=== PATIENT | male | born 1950 | race Caucasian/White ===

== ENCOUNTER 2020-10-15 14:08 | Inpatient (IN) | payer OTHER, SELFPAY ==
[~2020-10-15] VITALS: Ht 185.4 cm; Wt 77.1 kg
--- NOTE | 2020-10-15 14:11 | NUR ---
Patient to ER bed 03 to gown for evaluation. Side rails up.
[2020-10-15 14:19] VITALS: BP_SYST 144
--- NOTE | 2020-10-15 14:20 | NUR ---
Pt came to ER for urinary retention. Pt states he has not been able to urinate for the last few days. Pt states when he tries to go to the restroom only drops come out. Pt resting in [facility] at this time, VSS, no distress noted.
--- NOTE | 2020-10-15 14:35 | NUR ---
QUANG Maloney at bedside examining patient.
--- NOTE | 2020-10-15 15:44 | NUR ---
Pt tolerated hunt catheter
[2020-10-15 15:58] LABS: BILIRUBIN,URINE NEGATIVE (NEGATIVE); CLARITY/URINE CLEAR (CLEAR); COLOR,URINE YELLOW (YELLOW); GLUCOSE,URINE NEGATIVE (NEGATIVE); KETONES,URINE NEGATIVE (NEGATIVE); LEUKOCYTE ESTERASE ,URINE NEGATIVE (NEGATIVE); NITRITE, URINE NEGATIVE (NEGATIVE); PH,URINE 5.5 (5.0-8.0); PROTEIN URINE TRACE (NEGATIVE); UROBILINOGEN,URINE 0.2 (0.2-1.0)
[2020-10-15 16:10] LABS: BASOPHILS % (AUTO) 0.3 % (0.0-2.0); CALCIUM 9.5 mg/dL (8.4-11.0); CREATININE 3.33 mg/dL (0.55-1.30); EOSINOPHILS # (AUTO) 0.1 K/uL (0.0-0.4); EOSINOPHILS % (AUTO) 0.7 % (0.0-4.0); HEMATOCRIT 34.4 % (36-54); HEMOGLOBIN 11.8 g/dL (14.0-18.0); LYMPHOCYTES # (AUTO) 1.3 K/uL (1.0-5.5); LYMPHOCYTES % (AUTO) 16.7 % (20.5-51.5); MEAN CORPUSCULAR HEMOGLOBIN 34 pg (27-31); MEAN CORPUSCULAR HGB CONC 34 % (32-36); MEAN CORPUSCULAR VOLUME 98 fL (79.0-98.0); MONOCYTES # (AUTO) 0.4 K/uL (0.0-1.0); MONOCYTES % (AUTO) 4.8 % (1.7-9.3); NEUTROPHILS % (AUTO) 77.5 % (40.0-70.0); PLATELET COUNT (AUTO) 224 K/uL (130-430); POTASSIUM 4.7 mmol/L (3.5-5.1); RED BLOOD CELL COUNT(AUTO) 3.51 MIL/uL (4.2-6.2); RED CELL DISTRIBUTION WIDTH 16.9 % (9.0-15.0); WHITE BLOOD COUNT (AUTO) 7.8 K/uL (4.8-10.8)
[2020-10-15 16:12] LABS: BLOOD, URINE TRACE (NEGATIVE)
[2020-10-15 16:16] LABS: ALBUMIN 3.4 g/dL (3.4-4.8); TOTAL BILIRUBIN 0.4 mg/dL (0.0-1.0)
--- NOTE | 2020-10-15 17:00 | NUR ---
Pt resting in [facility] at bedside
[2020-10-15 17:01] LABS: BACTERIA,URINE FEW /HPF (None Seen); RBC,URINE 0-3 /HPF (0-3)
[2020-10-15 17:02] LABS: MUCUS,URINE None Seen /LPF (None Seen); URINE AMORPHOUS URATE 1+ /HPF (None Seen)
[2020-10-15 17:08] LABS: PROTHROMBIN TIME 10.7 SECS (9.5-12.5)
[2020-10-15] MEDS ORDERED: cefTRIAXone 1 GM in D5W 50 ML IV ONE (17:15)
[2020-10-15] MEDS ORDERED: MAGNESIUM CITRATE 300 ML ORAL SOLUTION PO ONE (17:15)
[2020-10-15] MEDS ORDERED: cefTRIAXone 1 GM VIAL ONE (17:51)
[2020-10-15] MEDS ORDERED: NACL 0.9% 1,000 ML IV SCH (18:30)
--- NOTE | 2020-10-15 18:30 | NUR ---
Pt comfortable, VSS
[2020-10-15] MEDS ORDERED: LORA-258 PO (18:38)
[2020-10-15] MEDS ORDERED: ONDA4TAB5 PO (18:38)
[2020-10-15] MEDS ORDERED: CAS50 PO (18:38)
[2020-10-15] MEDS ORDERED: LISI1TAB32 PO (18:38)
--- NOTE | 2020-10-15 18:39 | NUR ---
Med rec complete.
--- NOTE | 2020-10-15 19:11 | NUR ---
Received report from JENNIFER Martin and continue care of patient.
--- NOTE | 2020-10-15 19:22 | NUR ---
COVID-19 swabs collected and sent to lab.
--- NOTE | 2020-10-15 19:26 | NUR ---
Empty urine bag- urine output 750 ML, Yellow, clear.
--- NOTE | 2020-10-15 19:35 | NUR ---
Provide Sanwiches, Jello and Juice per patient request.
[2020-10-15] MEDS ORDERED: ONDANSETRON HCL 4 MG/2 ML VIAL IVP PRN (20:00)
[2020-10-15] MEDS ORDERED: ONDANSETRON 4 MG ODT TAB PO PRN (20:00)
[2020-10-15] MEDS ORDERED: LORazepam 2 MG/ML VIAL IVP PRN (20:00)
[2020-10-15] MEDS ORDERED: LORazepam 1 MG TABLET PO PRN (20:00)
--- NOTE | 2020-10-15 20:41 | NUR ---
US at bedside.
--- NOTE | 2020-10-15 21:22 | NUR ---
Patient went to restroom.
--- NOTE | 2020-10-15 21:51 | NUR ---
Given to Pillows and Centuria as request.
--- NOTE | 2020-10-15 22:16 | NUR ---
Patient is sleeping, vss.
--- NOTE | 2020-10-16 00:53 | NUR ---
Patient resting quietly. No acute distress noted. Vital signs within normal range.
--- NOTE | 2020-10-16 02:04 | NUR ---
Patient resting quietly. No acute distress noted. Vital signs within normal range.
--- NOTE | 2020-10-16 02:16 | NUR ---
Moved patient to hospital bed.
--- NOTE | 2020-10-16 03:53 | NUR ---
Patient is sleeping, no acute distress this time.
[2020-10-16] MEDS: D5/0.45 NS 1,000 ML IV SCH ×4 (04:18→18:41)
--- NOTE | 2020-10-16 04:25 | NUR ---
Blood for labwork drawn from finish remover. Patient tolerated well.
--- NOTE | 2020-10-16 05:18 | NUR ---
Patient resting quietly. No acute distress noted. Vital signs within normal range.
[2020-10-16 05:19] LABS: CREATININE 1.79 mg/dL (0.55-1.30); PHOSPHORUS 3.5 mg/dL (2.7-4.5)
--- NOTE | 2020-10-16 05:26 | NUR ---
Spoke with Dr. Bolaños.
--- NOTE | 2020-10-16 06:18 | NUR ---
Spoke with Dr. Emery.
--- NOTE | 2020-10-16 06:24 | NUR ---
Patient resting quietly. No acute distress noted. Vital signs within normal range.
[2020-10-16 06:50] LABS: BASOPHILS % (AUTO) 0.4 % (0.0-2.0); EOSINOPHILS # (AUTO) 0.1 K/uL (0.0-0.4); EOSINOPHILS % (AUTO) 1.4 % (0.0-4.0); HEMATOCRIT 33.2 % (36-54); HEMOGLOBIN 11.3 g/dL (14.0-18.0); LYMPHOCYTES # (AUTO) 1.7 K/uL (1.0-5.5); LYMPHOCYTES % (AUTO) 26.7 % (20.5-51.5); MEAN CORPUSCULAR HEMOGLOBIN 34 pg (27-31); MEAN CORPUSCULAR HGB CONC 34 % (32-36); MEAN CORPUSCULAR VOLUME 99 fL (79.0-98.0); MONOCYTES # (AUTO) 0.4 K/uL (0.0-1.0); MONOCYTES % (AUTO) 5.5 % (1.7-9.3); NEUTROPHILS # (AUTO) 4.2 K/uL (1.8-7.7); PLATELET COUNT (AUTO) 221 K/uL (130-430); RED BLOOD CELL COUNT(AUTO) 3.36 MIL/uL (4.2-6.2); RED CELL DISTRIBUTION WIDTH 16.6 % (9.0-15.0); WHITE BLOOD COUNT (AUTO) 6.3 K/uL (4.8-10.8)
--- NOTE | 2020-10-16 06:55 | NUR ---
Empty urine bag-urine output -850 ML, yellow, clear
--- NOTE | 2020-10-16 07:19 | NUR ---
report received from July JENNIFER
--- NOTE | 2020-10-16 07:20 | NUR ---
Evelia morris in [facility] - 10/16/20 at 0747 by JITENDRA report received from Ludmila RODRIGUEZ
--- NOTE | 2020-10-16 07:30 | NUR ---
PT IS SLEEPING IN BED.
[2020-10-16] MEDS ORDERED: MORPHINE 4 MG INJ. 4 MG/ML VIAL IVP ONE (08:15)
[2020-10-16 08:48] LABS: C-REACTIVE PROTEIN QUANT 11.6 mg/dL (0-0.5)
--- NOTE | 2020-10-16 08:58 | NUR ---
Patient will be admitted to care of DR. MALLOY. Admitted to MED SURG unit. Will go to room 100-A. Belongings list completed. Complete and up to date summary report printed. SBAR report to be given at bedside with opportunity for questions.
[2020-10-16] MEDS: LISINOPRIL 10 MG TABLET (PRINIVIL) PO SCH (09:00)
[2020-10-16] MEDS: HYDROCHLOROTHIAZIDE 12.5 MG CAPSULE (HCTZ) PO SCH (09:00)
[2020-10-16] MEDS ORDERED: POLYETHYLENE GLYCOL 3350, 17 GM/ POWD.PACK PO ONE (09:00)
[2020-10-16] MEDS: BICALUTAMIDE 50 MG TABLET PO SCH (09:00)
[2020-10-16 09:30] VITALS: BP_SYST 124
--- NOTE | 2020-10-16 09:30 | NUR ---
ADMIT ADMITTED WITH DIAGNOSIS OF PYELONEPHRITIS. IV ACCESS INTACT. CALLES CATHETER IN PLACE. HEIMLICH VALVE ON LEFT CHEST. PORT-A-CATH ON LEFT CHEST. ADMISSION PROCESS INITIATED. PATIENT DEMONSTRATED PROPER USE OF BERNIE LIGHT. WILL MONITOR.
[2020-10-16 09:47] LABS: ERYTHROCYTE SEDIMENTATION RATE 74 MM/HR (0-15)
--- NOTE | 2020-10-16 11:12 | NUR ---
CONSULT NEPHROLOGY MARIA TERESA DR RODRIGUES,ABID [phone] S/W [facility] OFFICE
--- NOTE | 2020-10-16 11:14 | NUR ---
CONSULT GI CONSTIPATION DR BILL [phone] DR CLINE BRAKE RELINER S/W [facility]
[2020-10-16 11:22] VITALS: BP_SYST 137
--- NOTE | 2020-10-16 12:00 | NUR ---
NPO RESTING. PATIENT VERBALIZED UNDERSTANDING ON NPO ORDER. NO OTHER COMPLAINS AT THIS TIME.
[2020-10-16 15:34] VITALS: BP_SYST 136
--- NOTE | 2020-10-16 15:54 | NUR ---
Consult Pulmo Consulting Doctor: Dr. Elizabeth [phone] Reason: Pneumothorax Requesting Doctor: Dr. Monsalve, A Spoke with Lindsay at exchange
--- NOTE | 2020-10-16 16:39 | NUR ---
TRANSFER OF CARE NEEDS MET. TRANSFERRED TO THE CARE OF MS. KELLIE RN.
[2020-10-16] MEDS: cefTRIAXone 1 GM IVPB PREMIX 50 ML IV SCH (18:40)
--- NOTE | 2020-10-16 19:00 | NUR ---
khushboo notes at bedside and pt eating dinner. no osb noted. bed to the lowest position and side rails up and locked. call light withn reached.
--- NOTE | 2020-10-16 19:40 | NUR ---
OPENING NOTE RECEIVED REPORT FROM DAY RN. PATIENT AAOX4. RESPIRATION EVEN AND UNLABORED ON RA. NO SIGNS OF DISTRESS NOTED. AT BEDSIDE. CALLES CATHETER INTACT AND DRAINING YELLOW FLUID. LAC 22G PATEN AND INTACT RUNNING IVF. NO SIGNS OF INFILTRATION NOTED. HEIMLICH VALVE ON LEFT LUNG CLEAN, DRY AND INTACT. YELLOW FLUID DRAINING. LEFT PORT A CATH DRESSING CLEAN, DRY, AND INTACT. NO SIGNS OF INFECTION NOTED. BED IN LOW AND LOCKED POSITION. CALL LIGHT WITHIN REACH. SAFETY PRECAUTIONS IN PLACE. EDUCATED PT ON PLAN OF CARE. WILL CONTINUE TO MONITOR.
[2020-10-16 20:00] VITALS: BP_SYST 125
[2020-10-16] MEDS: POLYETHYLENE GLYCOL 3350, 17 GM/ POWD.PACK PO SCH (20:29)
--- NOTE | 2020-10-16 21:28 | NUR ---
DR. EARLY CALLED EXPLAINED TO MD THAT CONSULT WAS FOR PT PNEUMOTHORAX. CXR ORDERED FOR THURSDAY MORNING, 10/17/[address] EARLY. TO/RB FOR VERIFICATION. PATIENT NOTIFIED OF MORNING PROCEDURE
--- NOTE | 2020-10-16 23:11 | NUR ---
LAC 22G IV DISLODGED TWO ATTEMPTS TO ACCESS NEW IV. PT REFUSED ANOTHER ATTEMPT. CHARGE NURSE NOTIFIED. WILL ENDORSE TO DAY RN.
[2020-10-17 00:19] VITALS: BP_SYST 123
--- NOTE | 2020-10-17 06:40 | NUR ---
Nutrition Update Yoan Scale 17 noted. Pt admitted for Pyelonephritis Diet: 2gm Na BMI: 22.4 kg/m2 RD to follow per nutrition care standards.
--- NOTE | 2020-10-17 06:53 | NUR ---
CLOSING NOTE PATIENT SLEEPING IN BED WITH RESPIRATIONS EVEN AND UNLABORED ON RA. NO SIGNS OF DISTRESS NOTED. CALLES CATHETER INTACT AND DRAINING YELLOW FLUID. HEIMLICH VALVE ON LEFT LUNG CLEAN, DRY AND INTACT. YELLOW FLUID DRAINING. LEFT PORT A CATH DRESSING CLEAN, DRY, AND INTACT. NO SIGNS OF INFECTION NOTED. BED IN LOW AND LOCKED POSITION. CALL LIGHT WITHIN REACH. SAFETY PRECAUTIONS IN PLACE. ALL NEEDS MET THROUGHOUT THE NIGHT. WILL ENDORSE TO DAY RN.
[2020-10-17 06:57] LABS: BASOPHILS % (AUTO) 0.4 % (0.0-2.0); EOSINOPHILS % (AUTO) 0.7 % (0.0-4.0); HEMATOCRIT 34.5 % (36-54); HEMOGLOBIN 11.9 g/dL (14.0-18.0); LYMPHOCYTES # (AUTO) 1.7 K/uL (1.0-5.5); LYMPHOCYTES % (AUTO) 28.8 % (20.5-51.5); MEAN CORPUSCULAR HEMOGLOBIN 34 pg (27-31); MEAN CORPUSCULAR HGB CONC 34 % (32-36); MEAN CORPUSCULAR VOLUME 99 fL (79.0-98.0); MONOCYTES # (AUTO) 0.5 K/uL (0.0-1.0); MONOCYTES % (AUTO) 8.4 % (1.7-9.3); NEUTROPHILS # (AUTO) 3.5 K/uL (1.8-7.7); NEUTROPHILS % (AUTO) 61.7 % (40.0-70.0); PLATELET COUNT (AUTO) 216 K/uL (130-430); RED BLOOD CELL COUNT(AUTO) 3.49 MIL/uL (4.2-6.2); RED CELL DISTRIBUTION WIDTH 16.7 % (9.0-15.0); WHITE BLOOD COUNT (AUTO) 5.8 K/uL (4.8-10.8)
--- NOTE | 2020-10-17 07:25 | NUR ---
OPENING NOTES: RECEIVED REPORT FROM DEPARTMENT STORE DOOR GREETER NURSE. PATIENT IS AWAKE LAYING DOWN IN BED. TOLERATED OXYGEN ON ROOM AIR WITH NO DISTRESS NOTED. NO IV LINE NOTED. DENIES ANY PAIN AT THE MOMENT. PATIENT STABLE AT THIS TIME. SAFETY, FALL, AND ASPIRATION PRECAUTIONS ARE IN PLACE. BED LOCKED IN LOWEST POSITION AND CALL LIGHT IN REACH. WILL CONTINUE TO MONITOR PATIENT FOR ANY CHANGES. Addendum: 10/17/20 at 0754 by Adal Cutler RN CALLES CATHETER IN PLACE AND DRAINING BY GRAVITY WITH YELLOW URINE.
[2020-10-17 07:32] LABS: CALCIUM 9.1 mg/dL (8.4-11.0); CREATININE 1.3 mg/dL (0.55-1.30); PHOSPHORUS 3.2 mg/dL (2.7-4.5); POTASSIUM 4.2 mmol/L (3.5-5.1); TOTAL BILIRUBIN 0.1 mg/dL (0.0-1.0)
[2020-10-17 08:00] VITALS: BP_SYST 128
[2020-10-17 08:28] LABS: ERYTHROCYTE SEDIMENTATION RATE 85 MM/HR (0-15)
[2020-10-17 09:27] LABS: C-REACTIVE PROTEIN QUANT 6.6 mg/dL (0-0.5)
[2020-10-17] MEDS: HYDROCHLOROTHIAZIDE 12.5 MG CAPSULE (HCTZ) PO SCH (09:47)
[2020-10-17] MEDS: TAMSULOSIN HCL 0.4 MG CAP PO SCH (09:48)
[2020-10-17] MEDS: LISINOPRIL 10 MG TABLET (PRINIVIL) PO SCH (09:48)
[2020-10-17] MEDS: POLYETHYLENE GLYCOL 3350, 17 GM/ POWD.PACK PO SCH ×2 (09:48→21:38)
[2020-10-17] MEDS: BICALUTAMIDE 50 MG TABLET PO SCH (09:49)
[2020-10-17] MEDS: D5/0.45 NS 1,000 ML IV SCH (12:00)
[2020-10-17 12:08] VITALS: BP_SYST 143
[2020-10-17 16:07] VITALS: BP_SYST 131
[2020-10-17] MEDS: cefTRIAXone 1 GM IVPB PREMIX 50 ML IV SCH (17:45)
--- NOTE | 2020-10-17 18:30 | NUR ---
CLOSING NOTES: PATIENT IS AWAKE LAYING DOWN IN BED. TOLERATED OXYGEN ON ROOM AIR WITH NO DISTRESS NOTED. IV LINE PATENT AND INTACT WITH NO INFILTRATION NOTED. CALLES CATHETER IN PLACE AND DRAINING BY GRAVITY WITH YELLOW URINE. DENIES ANY PAIN AT THE MOMENT. PATIENT STABLE AT THIS TIME. SAFETY, FALL, AND ASPIRATION PRECAUTIONS REMAINED IN PLACE. BED LOCKED IN LOWEST POSITION AND CALL LIGHT IN REACH. WILL ENDORSE PATIENT CARE TO ONCOMING WELL DRILLER NURSE.
[2020-10-17 20:00] VITALS: BP_SYST 127
--- NOTE | 2020-10-17 20:46 | NUR ---
OPENING NOTE PATIENT STANDING NEAR BED, STEADY. RESPIRATIONS EVEN AND UNLABORED ON RA. NO SIGNS OF DISTRESS NOTED. CALLES CATHETER INTACT DRAINING YELLOW FLUID. LEFT PORT A CATH INTACT. NO DRESSING NOTED. SUTURES INTACT. LACERATION CLEAN, DRY, WITH NO REDNESS OR DRAINAGE. HEIMLICH VALVE ON LEFT LUNG. CLEAN DRY AND INTACT. DRAINING YELLOW FLUID. NO SIGNS OF INFECTION NOTED. BED IN LOW AND LOCKED POSITION. CALL LIGHT WITHIN REACH. SAFETY PRECAUTIONS IN PLACE. PT IN GOOD SPIRITS. WILL CONTINUE TO MONITOR.
[2020-10-17] MEDS: NORMAL SALINE 5 ML DISP.SYRIN IVF SCH (21:38)
[2020-10-18 02:07] VITALS: BP_SYST 122
[2020-10-18] MEDS: NORMAL SALINE 5 ML DISP.SYRIN IVF SCH ×2 (06:05→13:22)
[2020-10-18 06:33] LABS: BASOPHILS % (AUTO) 0.2 % (0.0-2.0); EOSINOPHILS % (AUTO) 0.7 % (0.0-4.0); HEMATOCRIT 34.1 % (36-54); HEMOGLOBIN 11.8 g/dL (14.0-18.0); LYMPHOCYTES # (AUTO) 1.7 K/uL (1.0-5.5); LYMPHOCYTES % (AUTO) 23.3 % (20.5-51.5); MEAN CORPUSCULAR HEMOGLOBIN 34 pg (27-31); MEAN CORPUSCULAR HGB CONC 35 % (32-36); MEAN CORPUSCULAR VOLUME 98 fL (79.0-98.0); MONOCYTES # (AUTO) 0.6 K/uL (0.0-1.0); MONOCYTES % (AUTO) 8.2 % (1.7-9.3); NEUTROPHILS # (AUTO) 4.8 K/uL (1.8-7.7); NEUTROPHILS % (AUTO) 67.6 % (40.0-70.0); PLATELET COUNT (AUTO) 225 K/uL (130-430); RED BLOOD CELL COUNT(AUTO) 3.48 MIL/uL (4.2-6.2); RED CELL DISTRIBUTION WIDTH 16.5 % (9.0-15.0); WHITE BLOOD COUNT (AUTO) 7.1 K/uL (4.8-10.8)
[2020-10-18 06:39] LABS: CALCIUM 9.2 mg/dL (8.4-11.0); CREATININE 1.12 mg/dL (0.55-1.30); PHOSPHORUS 3.7 mg/dL (2.7-4.5); POTASSIUM 4.1 mmol/L (3.5-5.1)
--- NOTE | 2020-10-18 07:22 | NUR ---
CLOSING NOTE PT SLEEPING IN BED. RESPIRATIONS EVEN AND UNLABORED ON RA. NO SIGNS OF DISTRESS NOTED. SAFETY PRECAUTIONS IN PLACE. ALL NEEDS MET. WILL ENDORSE TO DAY RN.
--- NOTE | 2020-10-18 07:25 | NUR ---
OPENING NOTES: RECEIVED REPORT FROM POLICE CHIEF DEPUTY NURSE. PATIENT IS AWAKE LAYING DOWN IN BED. TOLERATED OXYGEN ON ROOM AIR WITH NO DISTRESS NOTED. IV LINE PATENT AND INTACT WITH NO INFILTRATION NOTED. CALLES CATHETER IN PLACE AND DRAINING BY GRAVITY. DENIES ANY PAIN AT THE MOMENT. PATIENT STABLE AT THIS TIME. SAFETY, FALL, AND ASPIRATION PRECAUTIONS ARE IN PLACE. BED LOCKED IN LOWEST POSITION AND CALL LIGHT IN REACH. WILL CONTINUE TO MONITOR PATIENT FOR ANY CHANGES.
[2020-10-18 07:31] LABS: C-REACTIVE PROTEIN QUANT 3.3 mg/dL (0-0.5)
[2020-10-18 08:00] VITALS: BP_SYST 120
[2020-10-18] MEDS: POLYETHYLENE GLYCOL 3350, 17 GM/ POWD.PACK PO SCH (09:23)
[2020-10-18] MEDS: TAMSULOSIN HCL 0.4 MG CAP PO SCH (09:23)
[2020-10-18] MEDS: HYDROCHLOROTHIAZIDE 12.5 MG CAPSULE (HCTZ) PO SCH (09:24)
[2020-10-18] MEDS: LISINOPRIL 10 MG TABLET (PRINIVIL) PO SCH (09:24)
[2020-10-18] MEDS: BICALUTAMIDE 50 MG TABLET PO SCH (09:25)
[2020-10-18 09:43] LABS: ERYTHROCYTE SEDIMENTATION RATE 68 MM/HR (0-15)
[2020-10-18 12:09] VITALS: BP_SYST 125
[2020-10-18] MEDS ORDERED: LEVO500T89 PO (13:18)
[2020-10-18] MEDS ORDERED: POLY17PO4 PO (13:18)
[2020-10-18] MEDS ORDERED: TAMS0.4C96 PO (13:18)
[2020-10-18 13:48] VITALS: BP_SYST 125
--- NOTE | 2020-10-18 14:35 | NUR ---
D/C Patient Patient given medication reconciliation form and D/C instructions. Exit Care provided. Patient verbalized understanding. MD discussed with patient the results and treatment provided. Ambulatory with steady gait for discharge to home. Patient in stable condition, ID band removed. IV catheter removed, intact and dressing applied, no active bleeding. Rx of tamsulosin, levaquin, and miralax given. Patient educated on pain management. All belongings sent with patient.
--- NOTE | 2020-10-19 08:24 | NUR ---
Disposition 01
== END 2020-10-18 14:35 | disposition home or self-care (01) | DRG 698 ==
LOC: SED 14:08 → SMU 18:24
PROVIDERS: ADMIT Preventive Medicine Preventive Medicine/Occupational Environmental Medicine; ATTEND Preventive Medicine Preventive Medicine/Occupational Environmental Medicine
DX: N13.9 Obstructive and reflux uropathy, unspecified (principal); N17.0 Acute kidney failure with tubular necrosis; N10 Acute pyelonephritis; C19 Malignant neoplasm of rectosigmoid junction; J95.811 Postprocedural pneumothorax; N39.0 Urinary tract infection, site not specified; C61 Malignant neoplasm of prostate; K59.00 Constipation, unspecified; D64.9 Anemia, unspecified; Z20.822 Contact with and (suspected) exposure to COVID-19; E88.09 Other disorders of plasma-protein metabolism, not elsewhere classified; F41.9 Anxiety disorder, unspecified; I25.10 Atherosclerotic heart disease of native coronary artery without angina pectoris; I12.9 Hypertensive chronic kidney disease with stage 1 through stage 4 chronic kidney disease, or unspecified chronic kidney disease; N18.9 Chronic kidney disease, unspecified; Z85.46 Personal history of malignant neoplasm of prostate; Z85.048 Personal history of other malignant neoplasm of rectum, rectosigmoid junction, and anus
CPT/HCPCS: 36415; 71045; 71250-TC; 76376; 76770; 80048; 80053; 81000; 83605; 83735; 84100; 85025; 85610-TC; 85651-TC; 85730-TC; 86140; 87040-TC; 87081; 87086; 96365; 96375; 99285; J0696; J2270

== ENCOUNTER 2020-10-25 05:02 | Emergency (ER) | payer OTHER, SELFPAY ==
[~2020-10-25] VITALS: Ht 185.4 cm; Wt 80.7 kg
[~2020-10-25 05:02] MED LIST: CAS50 PO; LEVO500T89 PO; LISI1TAB32 PO; LORA-258 PO; ONDA4TAB5 PO; POLY17PO4 PO; TAMS0.4C96 PO
[2020-10-25 05:10] VITALS: BP_SYST 113
--- NOTE | 2020-10-25 05:30 | NUR ---
Patient to ER bed 8 to gown for evaluation. Side rails up. Report given to Ludmila RODRIGUEZ.
--- NOTE | 2020-10-25 05:32 | NUR ---
Patient BIB by family from home. C/O Hunt catheter x today. Patient reported, hunt catheter came off itself ~ 2000 PM yesterday, Patient unable to urinate by himself since. A/O,X4, denies pain. Patient will have appointment with spine supervisor today.
--- NOTE | 2020-10-25 05:48 | NUR ---
# 16 FR Gradna catheter with use of sterile technique. Immediate return of 700 ML, yellow, clear urine noted. Bedside drainage bag placed below level of bladder. Urine sample collected and sent to lab. Pt tolerated procedure well.
--- NOTE | 2020-10-25 06:03 | NUR ---
ER at bedside examining patient.
[2020-10-25 06:15] VITALS: BP_SYST 113
--- NOTE | 2020-10-25 06:15 | NUR ---
Patient given written and verbal discharge instructions and verbalizes understanding. ER MD discussed with patient the results and treatment provided. Patient in stable condition. ID arm band removed. No Rx given. Patient educated on pain management and to follow up with PMD. Pain Scale 0/10.Patient went home with Granda cath. Opportunity for questions provided and answered. Medication side effect fact sheet provided.
== END 2020-10-25 06:15 | disposition home or self-care (01) ==
LOC: SED 05:02
DX: T83.021A Displacement of indwelling urethral catheter, initial encounter (principal); R33.9 Retention of urine, unspecified; I10 Essential (primary) hypertension; Z79.899 Other long term (current) drug therapy
CPT/HCPCS: 99284

== ENCOUNTER 2020-11-25 19:23 | Inpatient (IN) | payer OTHER, SELFPAY ==
[~2020-11-25] VITALS: Ht 185.4 cm; Wt 83.9 kg
[2020-11-25 19:45] VITALS: BP_SYST 127
[2020-11-25] MEDS ORDERED: ACETAMINOPHEN 325 MG TABLET PO ONE (20:15)
[2020-11-25] MEDS ORDERED: LR 2,000 ML IV ONE (20:15)
[2020-11-25 20:37] LABS: BASOPHILS % (AUTO) 0.2 % (0.0-2.0); EOSINOPHILS % (AUTO) 0.1 % (0.0-4.0); HEMATOCRIT 30.4 % (36-54); HEMOGLOBIN 10.3 g/dL (14.0-18.0); LYMPHOCYTES # (AUTO) 1.1 K/uL (1.0-5.5); LYMPHOCYTES % (AUTO) 15.7 % (20.5-51.5); MEAN CORPUSCULAR HEMOGLOBIN 33 pg (27-31); MEAN CORPUSCULAR HGB CONC 34 % (32-36); MEAN CORPUSCULAR VOLUME 97 fL (79.0-98.0); MONOCYTES # (AUTO) 1.1 K/uL (0.0-1.0); MONOCYTES % (AUTO) 15.5 % (1.7-9.3); NEUTROPHILS # (AUTO) 4.7 K/uL (1.8-7.7); NEUTROPHILS % (AUTO) 68.5 % (40.0-70.0); PLATELET COUNT (AUTO) 311 K/uL (130-430); RED BLOOD CELL COUNT(AUTO) 3.13 MIL/uL (4.2-6.2); RED CELL DISTRIBUTION WIDTH 16.2 % (9.0-15.0); WHITE BLOOD COUNT (AUTO) 6.8 K/uL (4.8-10.8)
[2020-11-25 20:47] LABS: PROTHROMBIN TIME 10.7 SECS (9.5-12.5)
[2020-11-25 21:00] LABS: C-REACTIVE PROTEIN QUANT 3.8 mg/dL (0-0.5)
[2020-11-25 21:04] LABS: BILIRUBIN,URINE NEGATIVE (NEGATIVE); BLOOD, URINE 2+ (NEGATIVE); COLOR,URINE YELLOW (YELLOW); GLUCOSE,URINE NEGATIVE (NEGATIVE); KETONES,URINE NEGATIVE (NEGATIVE); LEUKOCYTE ESTERASE ,URINE 2+ (NEGATIVE); NITRITE, URINE POSITIVE (NEGATIVE); PH,URINE 5.5 (5.0-8.0); PROTEIN URINE 2+ (NEGATIVE); UROBILINOGEN,URINE 0.2 (0.2-1.0)
[2020-11-25 21:08] LABS: BILIRUBIN,DIRECT 0.1 mg/dL (0.0-0.3); CALCIUM 9.4 mg/dL (8.4-11.0); CREATININE 1.4 mg/dL (0.55-1.30); POTASSIUM 4.1 mmol/L (3.5-5.1); TOTAL BILIRUBIN 0.2 mg/dL (0.0-1.0)
[2020-11-25 21:09] LABS: ALBUMIN 3.4 g/dL (3.4-4.8)
[2020-11-25 21:19] LABS: CLARITY/URINE HAZY (CLEAR)
[2020-11-25 21:20] LABS: WBC,URINE 50-80 /HPF (0-3)
[2020-11-25 21:21] LABS: BACTERIA,URINE MODERATE /HPF (None Seen); MUCUS,URINE None Seen /LPF (None Seen)
[2020-11-25 21:36] LABS: FREE T4 (FREE THYROXINE) 1.2 ng/dl (0.8-1.5); THYROID STIMULATING HORMONE 0.62 uIu/mL (0.36-3.74)
[2020-11-25] MEDS ORDERED: cefTRIAXone 2 GM VIAL ONE (21:58)
[2020-11-25] MEDS: D5/0.45 NS 1,000 ML IV SCH (22:00)
[2020-11-25] MEDS ORDERED: NALOXONE HCL 0.4 MG/ML AMP (NARCAN) IVP PRN ×2 (23:15)
[2020-11-25] MEDS ORDERED: LORazepam 2 MG/ML VIAL IVP PRN (23:15)
[2020-11-25] MEDS ORDERED: HYDROcodone/ACETAMIN 10-325 MG TAB PO PRN (23:15)
[2020-11-25] MEDS ORDERED: ACETAMINOPHEN 325 MG TABLET PO PRN (23:15)
[2020-11-25] MEDS ORDERED: ONDANSETRON 4 MG ODT TAB PO PRN (23:15)
[2020-11-25] MEDS ORDERED: LORazepam 1 MG TABLET PO PRN (23:15)
[2020-11-25] MEDS ORDERED: HYDROcodone/ACETAMIN 5-325 MG TAB (NORCO/ VICODIN) PO PRN (23:15)
[2020-11-26 02:22] VITALS: BP_SYST 114
[2020-11-26 06:51] LABS: BASOPHILS % (AUTO) 0.3 % (0.0-2.0); EOSINOPHILS % (AUTO) 0.4 % (0.0-4.0); HEMATOCRIT 27.6 % (36-54); HEMOGLOBIN 9.7 g/dL (14.0-18.0); LYMPHOCYTES # (AUTO) 1.4 K/uL (1.0-5.5); LYMPHOCYTES % (AUTO) 18.4 % (20.5-51.5); MEAN CORPUSCULAR HEMOGLOBIN 34 pg (27-31); MEAN CORPUSCULAR HGB CONC 35 % (32-36); MEAN CORPUSCULAR VOLUME 97 fL (79.0-98.0); MONOCYTES # (AUTO) 1.3 K/uL (0.0-1.0); NEUTROPHILS # (AUTO) 4.8 K/uL (1.8-7.7); NEUTROPHILS % (AUTO) 63.9 % (40.0-70.0); PLATELET COUNT (AUTO) 293 K/uL (130-430); RED BLOOD CELL COUNT(AUTO) 2.85 MIL/uL (4.2-6.2); RED CELL DISTRIBUTION WIDTH 15.8 % (9.0-15.0); WHITE BLOOD COUNT (AUTO) 7.6 K/uL (4.8-10.8)
[2020-11-26 08:00] VITALS: BP_SYST 116
[2020-11-26] MEDS: D5/0.45 NS 1,000 ML IV SCH ×2 (08:00→14:21)
[2020-11-26] MEDS: HYDROCHLOROTHIAZIDE 12.5 MG CAPSULE (HCTZ) PO SCH (08:38)
[2020-11-26] MEDS: levoFLOXacin 500 MG TABLET PO SCH (08:38)
[2020-11-26] MEDS: LISINOPRIL 10 MG TABLET (PRINIVIL) PO SCH (08:39)
[2020-11-26] MEDS: BICALUTAMIDE 50 MG TABLET PO SCH (08:39)
[2020-11-26 10:03] LABS: ERYTHROCYTE SEDIMENTATION RATE 97 MM/HR (0-15)
[2020-11-26 11:25] LABS: ALBUMIN 2.8 g/dL (3.4-4.8); C-REACTIVE PROTEIN QUANT 7.1 mg/dL (0-0.5); CREATININE 1.2 mg/dL (0.55-1.30); PHOSPHORUS 4.2 mg/dL (2.7-4.5); POTASSIUM 3.7 mmol/L (3.5-5.1); TOTAL BILIRUBIN 0.3 mg/dL (0.0-1.0)
[2020-11-26 12:00] VITALS: BP_SYST 116
[2020-11-26 16:00] VITALS: BP_SYST 118
[2020-11-26] MEDS ORDERED: MAGNESIUM SULFATE/D5W 100 ML IV ONE (17:15)
[2020-11-26 20:00] VITALS: BP_SYST 101
[2020-11-26] MEDS: cefTRIAXone 1 GM IVPB PREMIX 50 ML IV SCH (20:23)
[2020-11-27] VITALS: BP_SYST 112
[2020-11-27] MEDS: D5/0.45 NS 1,000 ML IV SCH (02:50)
[2020-11-27 07:30] LABS: C-REACTIVE PROTEIN QUANT 10.8 mg/dL (0-0.5); CREATININE 1.12 mg/dL (0.55-1.30); PHOSPHORUS 3.8 mg/dL (2.7-4.5)
[2020-11-27 07:45] LABS: BASOPHILS % (AUTO) 0.3 % (0.0-2.0); EOSINOPHILS # (AUTO) 0.1 K/uL (0.0-0.4); EOSINOPHILS % (AUTO) 0.9 % (0.0-4.0); HEMATOCRIT 31.6 % (36-54); HEMOGLOBIN 10.8 g/dL (14.0-18.0); LYMPHOCYTES # (AUTO) 1.9 K/uL (1.0-5.5); MEAN CORPUSCULAR HEMOGLOBIN 34 pg (27-31); MEAN CORPUSCULAR HGB CONC 34 % (32-36); MEAN CORPUSCULAR VOLUME 98 fL (79.0-98.0); MONOCYTES # (AUTO) 0.8 K/uL (0.0-1.0); MONOCYTES % (AUTO) 12.5 % (1.7-9.3); NEUTROPHILS # (AUTO) 3.9 K/uL (1.8-7.7); NEUTROPHILS % (AUTO) 58.3 % (40.0-70.0); PLATELET COUNT (AUTO) 320 K/uL (130-430); RED BLOOD CELL COUNT(AUTO) 3.22 MIL/uL (4.2-6.2); RED CELL DISTRIBUTION WIDTH 15.9 % (9.0-15.0); WHITE BLOOD COUNT (AUTO) 6.7 K/uL (4.8-10.8)
[2020-11-27 08:00] VITALS: BP_SYST 127
[2020-11-27 08:06] LABS: PTH, INTACT 33 pg/mL (15-65)
[2020-11-27] MEDS: LISINOPRIL 10 MG TABLET (PRINIVIL) PO SCH (08:50)
[2020-11-27] MEDS: levoFLOXacin 500 MG TABLET PO SCH (08:50)
[2020-11-27] MEDS: HYDROCHLOROTHIAZIDE 12.5 MG CAPSULE (HCTZ) PO SCH (08:50)
[2020-11-27] MEDS: BICALUTAMIDE 50 MG TABLET PO SCH (08:50)
[2020-11-27 10:49] LABS: ERYTHROCYTE SEDIMENTATION RATE 96 MM/HR (0-15)
[2020-11-27 11:46] VITALS: BP_SYST 126
[2020-11-27 15:32] VITALS: BP_SYST 132
[2020-11-27 20:49] VITALS: BP_SYST 134
[2020-11-28] VITALS: BP_SYST 145
[2020-11-28] MEDS: cefTRIAXone 1 GM IVPB PREMIX 50 ML IV SCH (00:44)
[2020-11-28 08:00] VITALS: BP_SYST 140
[2020-11-28] MEDS: HYDROCHLOROTHIAZIDE 12.5 MG CAPSULE (HCTZ) PO SCH (08:46)
[2020-11-28] MEDS: levoFLOXacin 500 MG TABLET PO SCH (08:47)
[2020-11-28] MEDS: BICALUTAMIDE 50 MG TABLET PO SCH (08:47)
[2020-11-28] MEDS: LISINOPRIL 10 MG TABLET (PRINIVIL) PO SCH (08:47)
[2020-11-28 12:44] VITALS: BP_SYST 133
[2020-11-28 15:22] VITALS: BP_SYST 135
[2020-11-29 11:06] LABS: VIT D,1, 25-DIHYDROXY 28.4 pg/mL (19.9-79.3)
[2020-12-04 19:06] LABS: PTH RELATED PEPTIDE <2.0 pmol/L (.)
== END 2020-11-28 18:10 | disposition left against medical advice (07) | DRG 871 ==
LOC: SED 19:23 → SMU 21:50
PROVIDERS: ADMIT Preventive Medicine Preventive Medicine/Occupational Environmental Medicine; ATTEND Preventive Medicine Preventive Medicine/Occupational Environmental Medicine
DX: A41.9 Sepsis, unspecified organism (principal); N17.0 Acute kidney failure with tubular necrosis; N39.0 Urinary tract infection, site not specified; C19 Malignant neoplasm of rectosigmoid junction; D64.9 Anemia, unspecified; N18.9 Chronic kidney disease, unspecified; R73.9 Hyperglycemia, unspecified; N13.9 Obstructive and reflux uropathy, unspecified; I12.9 Hypertensive chronic kidney disease with stage 1 through stage 4 chronic kidney disease, or unspecified chronic kidney disease; Z20.822 Contact with and (suspected) exposure to COVID-19; C61 Malignant neoplasm of prostate; Z53.29 Procedure and treatment not carried out because of patient's decision for other reasons; Z79.899 Other long term (current) drug therapy; Z92.21 Personal history of antineoplastic chemotherapy
CPT/HCPCS: 36415; 71045; 76770; 80048; 80053; 80076; 81000; 82306; 82330; 83519; 83605; 83690; 83735; 83880; 83970; 84100; 84439; 84443; 84484; 85025; 85610-TC; 85651-TC; 86140; 87040-TC; 87086; 96365; 99285; J0696

== ENCOUNTER 2021-03-02 13:54 | Inpatient (IN) | payer OTHER, SELFPAY ==
[~2021-03-02] VITALS: Ht 185.4 cm; Wt 83.5 kg
[~2021-03-02 13:54] MED LIST changes: -POLY17PO4 PO; -TAMS0.4C96 PO
[2021-03-02 14:00] VITALS: BP_SYST 137
--- NOTE | 2021-03-02 14:05 | NUR ---
Patient walking ambulatory from triage to bed 4. Awaiting MD evaluation.
--- NOTE | 2021-03-02 14:07 | NUR ---
First contact made with patient. Family at bedside. Patient reporting anuria since ; states he self-caths but removes the catheter every 3-4 weeks to see if he can urinate on his own. Patient further states he is receiving "radiation" for an "enlarged prostate". Family reports patient can urinate but in very minimal amounts and has hematuria. Patient has also not been drinking very many fluids per family. VSS. Will continue to monitor.
[2021-03-02 14:48] LABS: EOSINOPHILS # (AUTO) 0.2 K/uL (0.0-0.4); EOSINOPHILS % (AUTO) 2.5 % (0.0-4.0); HEMATOCRIT 33.9 % (36-54); HEMOGLOBIN 11.5 g/dL (14.0-18.0); LYMPHOCYTES # (AUTO) 0.2 K/uL (1.0-5.5); LYMPHOCYTES % (AUTO) 3.9 % (20.5-51.5); MEAN CORPUSCULAR HEMOGLOBIN 34 pg (27-31); MEAN CORPUSCULAR HGB CONC 34 % (32-36); MEAN CORPUSCULAR VOLUME 99 fL (79.0-98.0); MONOCYTES # (AUTO) 0.7 K/uL (0.0-1.0); MONOCYTES % (AUTO) 11.9 % (1.7-9.3); NEUTROPHILS # (AUTO) 5.1 K/uL (1.8-7.7); NEUTROPHILS % (AUTO) 81.7 % (40.0-70.0); PLATELET COUNT (AUTO) 267 K/uL (130-430); RED BLOOD CELL COUNT(AUTO) 3.42 MIL/uL (4.2-6.2); RED CELL DISTRIBUTION WIDTH 15.4 % (9.0-15.0); WHITE BLOOD COUNT (AUTO) 6.2 K/uL (4.8-10.8)
[2021-03-02 14:53] LABS: CALCIUM 10.2 mg/dL (8.4-11.0); CREATININE 1.2 mg/dL (0.55-1.30); POTASSIUM 3.8 mmol/L (3.5-5.1)
[2021-03-02 14:57] LABS: PROTHROMBIN TIME 10.5 SECS (9.5-12.5)
--- NOTE | 2021-03-02 14:58 | NUR ---
18# FR Coude /Granda catheter with use of sterile technique. Immediate return of 200 cc urine noted. Bedside drainage bag placed below level of bladder. Urine sample collected and sent to lab. Pt tolerated procedure . Patient unable to toilet self.
[2021-03-02 14:59] LABS: ALBUMIN 4.1 g/dL (3.4-4.8); TOTAL BILIRUBIN 0.3 mg/dL (0.0-1.0)
--- NOTE | 2021-03-02 15:15 | NUR ---
RN attempted to place SL per Dr Wright's order. RN also attempted to place 3-way catheter for CBI. Patient became argumentative about why certain treatments were needed; refused both. Addendum: 03/02/21 at 1536 by SDEDJT RN attempted to educate patient re why IV and CBI were ordered and indicated. Did not accept education. Understanding verbalized but patient still refused.
--- NOTE | 2021-03-02 16:33 | NUR ---
Dr Wright at bedside to re-evaluate patient
--- NOTE | 2021-03-02 17:07 | NUR ---
Patient transported to CT scan via [facility]
--- NOTE | 2021-03-02 17:16 | NUR ---
Patient returned from CT scan via [facility]
[2021-03-02 17:26] LABS: BILIRUBIN,URINE NEGATIVE (NEGATIVE); BLOOD, URINE 3+ (NEGATIVE); CLARITY/URINE HAZY (CLEAR); COLOR,URINE YELLOW (YELLOW); GLUCOSE,URINE NEGATIVE (NEGATIVE); KETONES,URINE NEGATIVE (NEGATIVE); LEUKOCYTE ESTERASE ,URINE NEGATIVE (NEGATIVE); NITRITE, URINE NEGATIVE (NEGATIVE); PROTEIN URINE 1+ (NEGATIVE); UROBILINOGEN,URINE 0.2 (0.2-1.0)
[2021-03-02 17:28] LABS: WBC,URINE 50-80 /HPF (0-3)
[2021-03-02 17:29] LABS: BACTERIA,URINE FEW /HPF (None Seen); YEAST,URINE None Seen /HPF (None Seen)
[2021-03-02 17:31] LABS: MUCUS,URINE 1+ /LPF (None Seen)
[2021-03-02] MEDS ORDERED: NACL 0.9% 1,000 ML IV ONE (17:45)
[2021-03-02] MEDS ORDERED: LEVOFLOXACIN IN DEXTROSE 5 % 100 ML IV ONE (17:45)
--- NOTE | 2021-03-02 18:09 | NUR ---
# 20 gauge angiocath placed to L AC. Use of asceptic technique. Opsite placed over site. Blood return noted. Blood for lab drawn from site. Flushed with 10 cc of normal saline. No evidence of infiltration noted. Patient tolerated well.
--- NOTE | 2021-03-02 18:20 | NUR ---
# 20 gauge angiocath placed to L AC; second IV. Use of asceptic technique. Opsite placed over site. Blood return noted. Blood for lab drawn from site. Flushed with 10 cc of normal saline. No evidence of infiltration noted. Patient tolerated well. First IV "came out" while patient was in restroom.
--- NOTE | 2021-03-02 18:35 | NUR ---
COVID swab collected at bedside and sent to lab
--- NOTE | 2021-03-02 18:36 | NUR ---
Medication reconciliation completed with information provided by PATIENT. Any prior medication reconciliation on file was reviewed and corrected.
--- NOTE | 2021-03-02 19:03 | NUR ---
Report given to Kristal RODRIGUEZ to assume care of patient
--- NOTE | 2021-03-02 19:05 | NUR ---
RECEIVED REPORT FROM RACHELLE RODRIGUEZ
[2021-03-02] MEDS ORDERED: ACETAMINOPHEN 325 MG TABLET PO PRN (19:30)
[2021-03-02] MEDS ORDERED: MORPHINE 2 MG/ML INJ. SYRINGE IVP PRN (19:30)
--- NOTE | 2021-03-02 19:37 | NUR ---
PT RESTING IN HIS BED WAS ON MONITOR. REQUESTED TO USE THE BATHROOM, PT HAS BEEN HAVING DIARRHEA. STEADY GAIT NOTED WHEN WALKING. TAMIA
--- NOTE | 2021-03-02 19:51 | NUR ---
PT BACK TO ROOM. PROVIDED WITH BOXED LUNCH, PT SAYS HE HASN'T EATEN ALL DAY
--- NOTE | 2021-03-02 20:46 | NUR ---
PT TOLERATED BOXED LUNCH. PROVIDED PILLOW AND EXTRA BLANKET FOR COMFORT
--- NOTE | 2021-03-02 21:06 | NUR ---
NO NS WITH 20MEQ OF K IV FLUIDS IN ER. OREDER IS FLOOR ORDER. WILL WAIT TO SEE IF PT IS MOVING TO FLOOR SOON
--- NOTE | 2021-03-02 21:30 | NUR ---
PT CONTINUES TO HAVE DIARRHEA AND MAKES MULTIPLY TRIPS TO RESTROOM. HAS SOME ABD CRAMPING FROM THAT AND POSSIBLE BLADDER DISCOMFORT FOR INDWELLING CATH. WILL MEDICATE ORDERED
--- NOTE | 2021-03-02 21:45 | NUR ---
SPOKE TO HOUSE SUP ASKING FOR IV FLUID ORDER OF NS 1L WITH 20MEQ K+, PY WAITING TO BE ADMIITED TO MED/SURG. STILL NO BED AVAILABLILTY. HE WAS ADVISED K+ LEVEL IS 3.8, SAID TO WAIT FOR FLOOR TO START THAT ORDER
[2021-03-02] MEDS ORDERED: KCL 20 mEq in NS 1000 mL 1,000 ML IV ONE (22:08)
[2021-03-02] MEDS ORDERED: PIPERACILLIN/TAZOBACTAM 3.375 GM/VIAL (ZOSYN) IV ONE (22:08)
--- NOTE | 2021-03-02 22:10 | NUR ---
ADMISSION NOTE Received patient from ER via gayle, received report from Kristal RODRIGUEZ. Patient admitted with diagnosis of UTI . Patient oriented to hospital routine, call light, toileting and safety-patient verbalized understanding.
--- NOTE | 2021-03-02 22:18 | NUR ---
Patient will be admitted to care of DR. SEXTON. Admitted to MED/SURG unit. Will go to room 107B. Belongings list completed. Complete and up to date summary report printed. SBAR report to be given at bedside with opportunity for questions. REPORT GIVEN TO DEDRA RODRIGUEZ
[2021-03-02 22:30] VITALS: BP_SYST 143
[2021-03-02] MEDS: KCL 20 mEq in NS 1000 mL 1,000 ML IV SCH (22:51)
--- NOTE | 2021-03-02 23:30 | NUR ---
Mobility Patient ambulate to bathroom with steady gait, safety/fall precaution initiated.
[2021-03-03 00:09] VITALS: BP_SYST 117
--- NOTE | 2021-03-03 03:41 | NUR ---
PATIENT RESTING: Patient resting quietly. No acute distress noted. will monitor
[2021-03-03] MEDS ORDERED: PIPERACILLIN/TAZO 3.375/DEX-IS 50 ML IV SCH (06:00)
--- NOTE | 2021-03-03 06:58 | NUR ---
CONSULTATION PAGED/CALLED Reason for Consultation: [] uti Person Who was Notified: [] DR MILLER Consulting Physician: [] DR MILLER Recruiting Operations Consultant Specialty: [] UROLOGY Ordering Physician: [] DR SEXTON
[2021-03-03 07:44] LABS: ALBUMIN 3.3 g/dL (3.4-4.8); CALCIUM 9.3 mg/dL (8.4-11.0); CREATININE 1.19 mg/dL (0.55-1.30); POTASSIUM 4.3 mmol/L (3.5-5.1); TOTAL BILIRUBIN 0.2 mg/dL (0.0-1.0)
--- NOTE | 2021-03-03 08:00 | NUR ---
PATIENT IN BED, NO S/S OF DISTRESS, TOLERATING CARE, SAFETY MEASURES IN PLACE WILL CONTINUE TO MONITOR. CALLES DRAINING CLEAR YELLOW URINE.
[2021-03-03 08:44] LABS: BASOPHILS % (AUTO) 0.2 % (0.0-2.0); EOSINOPHILS # (AUTO) 0.2 K/uL (0.0-0.4); EOSINOPHILS % (AUTO) 5.3 % (0.0-4.0); HEMATOCRIT 31.1 % (36-54); HEMOGLOBIN 10.6 g/dL (14.0-18.0); LYMPHOCYTES # (AUTO) 0.2 K/uL (1.0-5.5); LYMPHOCYTES % (AUTO) 5.7 % (20.5-51.5); MEAN CORPUSCULAR HEMOGLOBIN 34 pg (27-31); MEAN CORPUSCULAR HGB CONC 34 % (32-36); MEAN CORPUSCULAR VOLUME 99 fL (79.0-98.0); MONOCYTES # (AUTO) 0.6 K/uL (0.0-1.0); MONOCYTES % (AUTO) 16.2 % (1.7-9.3); NEUTROPHILS # (AUTO) 2.8 K/uL (1.8-7.7); NEUTROPHILS % (AUTO) 72.6 % (40.0-70.0); PLATELET COUNT (AUTO) 242 K/uL (130-430); RED BLOOD CELL COUNT(AUTO) 3.16 MIL/uL (4.2-6.2); RED CELL DISTRIBUTION WIDTH 15.1 % (9.0-15.0)
[2021-03-03] MEDS: KCL 20 mEq in NS 1000 mL 1,000 ML IV SCH ×2 (08:50→11:56)
[2021-03-03 09:39] LABS: WHITE BLOOD COUNT (AUTO) 3.9 K/uL (4.8-10.8)
[2021-03-03 11:27] VITALS: BP_SYST 123
[2021-03-03] MEDS: PIPERACILLIN/TAZO 3.375/DEX-IS 50 ML IV SCH ×3 (11:57→23:48)
--- NOTE | 2021-03-03 14:00 | NUR ---
SPOKE TO DR MILLER, PATIENT IS TO CONTINUE CARE INPATIENT, ANSWERED ALL PATIENT QUESTIONS
[2021-03-03] MEDS ORDERED: LORazepam 1 MG TABLET PO PRN (15:45)
[2021-03-03 15:53] VITALS: BP_SYST 142
[2021-03-03] MEDS ORDERED: BICALUTAMIDE 50 MG TABLET PO ONE (16:30)
--- NOTE | 2021-03-03 19:00 | NUR ---
PATIENT IN BED, NO S/S OF DISTRESS, SAFETY MEASURES IN PLACE ENDORSED CONTINUATION OF CARE
[2021-03-03 20:20] VITALS: BP_SYST 149
[2021-03-03] MEDS ORDERED: IBUPROFEN 600 MG TABLET PO ONE (22:45)
--- NOTE | 2021-03-03 22:51 | NUR ---
Complaining of bladder discomfort, flush with 20 cc of saline to Granda catheter with normal saline no resistance with clear urine , bladder scan was done 36 ml residual. will continue to monitor.
[2021-03-04 01:14] VITALS: BP_SYST 120
[2021-03-04] MEDS: KCL 20 mEq in NS 1000 mL 1,000 ML IV SCH ×2 (01:42→13:48)
--- NOTE | 2021-03-04 04:32 | NUR ---
Complaining ofmild lower abdominal discomfort on/off, drained 200 ml of clear urine, bladder is not distended , had loose stool 9 x small amount , on continuous IV hydration.
[2021-03-04] MEDS: PIPERACILLIN/TAZO 3.375/DEX-IS 50 ML IV SCH ×4 (05:22→23:35)
--- NOTE | 2021-03-04 05:25 | NUR ---
Paged , Jayson for bladder spasm patient refused for morphine medication for pain
[2021-03-04] MEDS: KETOROLAC TROMETHAMINE 15 MG VIAL IVP PRN ×3 (06:00→20:38)
--- NOTE | 2021-03-04 06:30 | NUR ---
Patient verbalized relief of bladder spasm, with clear urine output
[2021-03-04 07:48] LABS: BASOPHILS % (AUTO) 0.4 % (0.0-2.0); EOSINOPHILS # (AUTO) 0.2 K/uL (0.0-0.4); EOSINOPHILS % (AUTO) 4.2 % (0.0-4.0); HEMATOCRIT 30.6 % (36-54); HEMOGLOBIN 10.2 g/dL (14.0-18.0); LYMPHOCYTES # (AUTO) 0.2 K/uL (1.0-5.5); LYMPHOCYTES % (AUTO) 4.7 % (20.5-51.5); MEAN CORPUSCULAR HEMOGLOBIN 33 pg (27-31); MEAN CORPUSCULAR HGB CONC 34 % (32-36); MEAN CORPUSCULAR VOLUME 100 fL (79.0-98.0); MONOCYTES # (AUTO) 0.6 K/uL (0.0-1.0); MONOCYTES % (AUTO) 14.9 % (1.7-9.3); NEUTROPHILS # (AUTO) 3.3 K/uL (1.8-7.7); NEUTROPHILS % (AUTO) 75.8 % (40.0-70.0); PLATELET COUNT (AUTO) 237 K/uL (130-430); RED BLOOD CELL COUNT(AUTO) 3.07 MIL/uL (4.2-6.2); RED CELL DISTRIBUTION WIDTH 15.3 % (9.0-15.0); WHITE BLOOD COUNT (AUTO) 4.4 K/uL (4.8-10.8)
[2021-03-04 08:00] VITALS: BP_SYST 104
[2021-03-04 08:06] LABS: CALCIUM 8.9 mg/dL (8.4-11.0); CREATININE 1.39 mg/dL (0.55-1.30)
[2021-03-04] MEDS: BICALUTAMIDE 50 MG TABLET PO SCH (09:03)
--- NOTE | 2021-03-04 09:39 | NUR ---
Dietitian Recommendations *Recommend: add Ensure Plus BID. Continue regular diet. Please see Nutritional Assessment for details. TASIA HSU
[2021-03-04 11:33] VITALS: BP_SYST 150
[2021-03-04 15:24] VITALS: BP_SYST 131
[2021-03-04 20:00] VITALS: BP_SYST 131
--- NOTE | 2021-03-04 22:00 | NUR ---
ROUNDING NOTES Patient resting in bed - no s/s pain or distress noted. Respirations even and unlabored - head of bed elevated. IV site patent - no s/s redness, infection, or infiltration. Bed locked and in lowest position. Call light within reach.
[2021-03-05] VITALS: BP_SYST 101
[2021-03-05] MEDS: KCL 20 mEq in NS 1000 mL 1,000 ML IV SCH (03:12)
[2021-03-05] MEDS: KETOROLAC TROMETHAMINE 15 MG VIAL IVP PRN ×3 (03:16→16:59)
[2021-03-05] MEDS: PIPERACILLIN/TAZO 3.375/DEX-IS 50 ML IV SCH ×2 (06:36→12:14)
[2021-03-05 07:07] LABS: BASOPHILS % (AUTO) 0.4 % (0.0-2.0); EOSINOPHILS # (AUTO) 0.3 K/uL (0.0-0.4); EOSINOPHILS % (AUTO) 8.1 % (0.0-4.0); HEMATOCRIT 29.5 % (36-54); HEMOGLOBIN 10.1 g/dL (14.0-18.0); LYMPHOCYTES # (AUTO) 0.3 K/uL (1.0-5.5); LYMPHOCYTES % (AUTO) 7.1 % (20.5-51.5); MEAN CORPUSCULAR HEMOGLOBIN 34 pg (27-31); MEAN CORPUSCULAR HGB CONC 34 % (32-36); MEAN CORPUSCULAR VOLUME 99 fL (79.0-98.0); MONOCYTES # (AUTO) 0.5 K/uL (0.0-1.0); NEUTROPHILS # (AUTO) 2.5 K/uL (1.8-7.7); NEUTROPHILS % (AUTO) 69.4 % (40.0-70.0); PLATELET COUNT (AUTO) 217 K/uL (130-430); RED BLOOD CELL COUNT(AUTO) 2.99 MIL/uL (4.2-6.2); RED CELL DISTRIBUTION WIDTH 15.1 % (9.0-15.0); WHITE BLOOD COUNT (AUTO) 3.6 K/uL (4.8-10.8)
[2021-03-05 07:32] LABS: CREATININE 1.23 mg/dL (0.55-1.30); POTASSIUM 4.1 mmol/L (3.5-5.1)
--- NOTE | 2021-03-05 08:00 | NUR ---
PATIENT IN BED, NO S/S OF DISTRESS, TOLERATING CARE, SAFETY MEASURES IN PLACE WILL CONTINUE TO MONITOR. CALLES DRAINING CLEAR YELLOW URINE.
[2021-03-05] MEDS: BICALUTAMIDE 50 MG TABLET PO SCH (09:38)
--- NOTE | 2021-03-05 10:00 | NUR ---
FLUSHED CALLES CATHETER, TOLERATED WELL. CLEAR YELLOW URINE FLOWING AT THIS TIME.
[2021-03-05 11:34] VITALS: BP_SYST 114
--- NOTE | 2021-03-05 15:00 | NUR ---
FLUSHED CALLES CATHETER, TOLERATED WELL, BLADDER SCANNED PATIENT AND ZERO RESIDUAL AT THIS TIME.
[2021-03-05 15:31] VITALS: BP_SYST 142
[2021-03-05 16:48] VITALS: BP_SYST 135
--- NOTE | 2021-03-05 17:30 | NUR ---
PATIENT DISCHARGED, NO NEW MEDICATION ORDERED, CALLES CATHETER TO STAY IN PLACE FOR DISCHARGE AND NEEDS TO FOLLOW UP WITH UROLOGIST AND PRIMARY CARE PROVIDER OUTPATIENT, PROVIDED LEG BAG TO PATIENT, IV REMOVED, STABLE AT THIS TIME, WRIST BAND REMOVED, SIGNIFICANT OTHER PRESENT FOR DISCHARGE INSTRUCTIONS, BOTH VERBALIZED UNDERSTANDING, PATIENT SIGNED DISCHARGE PACKET, COPY WITH PATIENT, ORIGINAL IN CHART, WRIST BAND REMOVED, TAKEN TO CAR IN WHEEL CHAIR, CAR DRIVEN BY SIGNIFICANT OTHER.
== END 2021-03-05 17:30 | disposition home or self-care (01) | DRG 690 ==
LOC: SED 13:54 → STU 19:16 → SMU 03-03 08:19
PROVIDERS: ADMIT Family Medicine; ATTEND Family Medicine
DX: N39.0 Urinary tract infection, site not specified (principal); C18.9 Malignant neoplasm of colon, unspecified; N13.9 Obstructive and reflux uropathy, unspecified; D64.9 Anemia, unspecified; C61 Malignant neoplasm of prostate; N32.0 Bladder-neck obstruction; Z20.822 Contact with and (suspected) exposure to COVID-19; Z85.51 Personal history of malignant neoplasm of bladder; Z85.46 Personal history of malignant neoplasm of prostate; Z85.038 Personal history of other malignant neoplasm of large intestine
CPT/HCPCS: 36415; 76376; 76770; 80048; 80053; 81000; 83605; 84484; 85025; 85610-TC; 85730-TC; 87040-TC; 87086; 93005; 99285; G0378; J1885; J1956; J2270; J2543; J3480

== ENCOUNTER 2021-03-07 07:58 | Emergency (ER) | payer OTHER, SELFPAY ==
[~2021-03-07] VITALS: Ht 185.4 cm; Wt 83.9 kg
[~2021-03-07 07:58] MED LIST changes: -LEVO500T89 PO
[2021-03-07 08:00] VITALS: BP_SYST 155
[2021-03-07 09:47] LABS: BILIRUBIN,URINE NEGATIVE (NEGATIVE); BLOOD, URINE 3+ (NEGATIVE); COLOR,URINE YELLOW (YELLOW); GLUCOSE,URINE NEGATIVE (NEGATIVE); KETONES,URINE NEGATIVE (NEGATIVE); LEUKOCYTE ESTERASE ,URINE 1+ (NEGATIVE); NITRITE, URINE NEGATIVE (NEGATIVE); PROTEIN URINE 2+ (NEGATIVE); UROBILINOGEN,URINE 0.2 (0.2-1.0)
[2021-03-07 10:06] LABS: CLARITY/URINE SLIGHTLY HAZY (CLEAR)
[2021-03-07 11:27] LABS: BACTERIA,URINE MODERATE /HPF (None Seen); OTHER CASTS, URINE WBC CASTS 1+ /LPF (None Seen)
== END 2021-03-07 10:06 | disposition home or self-care (01) ==
LOC: SED 07:58
DX: T83.098A Other mechanical complication of other urinary catheter, initial encounter (principal); I10 Essential (primary) hypertension; Z79.899 Other long term (current) drug therapy
CPT/HCPCS: 81000; 87086; 99284

== ENCOUNTER 2021-11-13 08:52 | Outpatient (CLI) | payer OTHER ==
[~2021-11-13 08:52] MED LIST changes: -LISI1TAB32 PO; +LISI1TAB53 PO
== END 2021-11-13 19:58 | disposition home or self-care (01) ==
LOC: SCA 08:52
PROVIDERS: ATTEND Family Medicine
DX: I07.1 Rheumatic tricuspid insufficiency (principal); R94.31 Abnormal electrocardiogram [ECG] [EKG]; C78.7 Secondary malignant neoplasm of liver and intrahepatic bile duct
CPT/HCPCS: 93306

== ENCOUNTER 2022-01-25 15:18 | Emergency (ER) | payer OTHER ==
[~2022-01-25] VITALS: Ht 185.4 cm; Wt 81.6 kg
[2022-01-25 16:35] VITALS: BP_SYST 117
[2022-01-25 16:38] VITALS: BP_SYST 143
--- NOTE | 2022-01-25 16:49 | NUR ---
Pt bib self to the Er from home. CC bilateral leg swelling. aaox4, Pt has 2+ edema to left ankle to hip. Pt complains of pressure to areas of swelling. PMHX colon cancer. currently undergoing cancer treatment.
--- NOTE | 2022-01-25 17:00 | NUR ---
ER at bedside examining patient.
[2022-01-25 17:35] LABS: BASOPHILS % (AUTO) 0.7 % (0.0-2.0); EOSINOPHILS # (AUTO) 0.1 K/uL (0.0-0.4); EOSINOPHILS % (AUTO) 4.1 % (0.0-4.0); HEMOGLOBIN 11.7 g/dL (14.0-18.0); LYMPHOCYTES # (AUTO) 0.7 K/uL (1.0-5.5); LYMPHOCYTES % (AUTO) 24.7 % (20.5-51.5); MEAN CORPUSCULAR HEMOGLOBIN 30 pg (27-31); MEAN CORPUSCULAR HGB CONC 34 % (32-36); MEAN CORPUSCULAR VOLUME 86 fL (79.0-98.0); MONOCYTES # (AUTO) 0.2 K/uL (0.0-1.0); MONOCYTES % (AUTO) 6.6 % (1.7-9.3); NEUTROPHILS # (AUTO) 1.9 K/uL (1.8-7.7); NEUTROPHILS % (AUTO) 63.9 % (40.0-70.0); PLATELET COUNT (AUTO) 276 K/uL (130-430); RED BLOOD CELL COUNT(AUTO) 3.94 MIL/uL (4.2-6.2); RED CELL DISTRIBUTION WIDTH 16.1 % (9.0-15.0); WHITE BLOOD COUNT (AUTO) 2.9 K/uL (4.8-10.8)
[2022-01-25 17:50] LABS: CALCIUM 9.4 mg/dL (8.4-11.0); CREATININE 1.24 mg/dL (0.55-1.30)
[2022-01-25 17:56] LABS: ALBUMIN 3.3 g/dL (3.4-4.8); TOTAL BILIRUBIN 0.1 mg/dL (0.0-1.0)
--- NOTE | 2022-01-25 19:07 | NUR ---
Contacted radiology dept note ultra sound needed.
--- NOTE | 2022-01-25 19:17 | NUR ---
Pt requesting ultrasound to be completed ; paged auto brake technician.
--- NOTE | 2022-01-25 20:56 | NUR ---
Patient given written and verbal discharge instructions and verbalizes understanding. ER MD discussed with patient the results and treatment provided. Patient in stable condition. ID arm band removed. Patient educated on pain management and to follow up with PMD. Opportunity for questions provided and answered. Medication side effect fact sheet provided.
[2022-01-25 20:57] VITALS: BP_SYST 127
== END 2022-01-25 20:57 | disposition home or self-care (01) ==
LOC: SED 15:18
DX: R22.42 Localized swelling, mass and lump, left lower limb (principal); I10 Essential (primary) hypertension; Z79.899 Other long term (current) drug therapy
CPT/HCPCS: 36415; 80053; 85025; 86140; 93971; 99284